=== PATIENT | male | born 1990 | race Caucasian/White ===

== ENCOUNTER 2024-08-31 00:22 | Emergency (ER) | payer OTHER, SELFPAY ==
--- OUTSIDE RECORDS SUMMARY | 2024-08-31 00:24 | XMS_ITS | Clinical Summary ---
Author Organization [employer] [facility] Address [place], [place] [address] Care Team Providers Care Driller'S Assistant Name Role Phone Pcp, No Primary Care Provider Unavailabl e Allergies No known active allergies Medications buprenorphine-n aloxone, 2 mg-0.5 mg, (SUBOXONE) sublingual tablet Place under the tongue every morning. 0 12/25/2018 Active dextroamphetami ne-amphetamine (ADDERALL XR) 20 mg Extended-Releas e capsule Take 1 Capsule by mouth once daily. Active dextroamphetami ne-amphetamine (ADDERALL) 10 mg tablet Take 10 mg by mouth once daily. 02/09/2024 Active Active Problems Problem Noted Date Diagnosed Date Controlled substance agreement broken 06/03/2019 Elevated BP without diagnosis of hypertension Resolved Problems Problem Noted Date Diagnosed Date Resolved Date ADD (attention deficit disorder) 05/07/2011 12/25/2018 Immunizations Name Administration Dates Next Due COVID-19 vaccine (Errol-J&J) MATTY CLARKE 1 COVID-19 vaccine (Gamma Medica-Bio NTech 30mcg/0.3mL) 12YO+ DELL-SUCROSE MATTY CLARKE 08/08/2021 Hepatitis B (Peds) 04/16/2003 Td (Age >=7 Years) 04/16/2003 Tdap 06/26/2018,04/16/2003 Social History Tobacco Use Types Packs/Day Years Used Date Smoking Tobacco: Every Day Cigarettes Smokeless Tobacco: Never Tobacco Cessation:Ready to Q uit: Not Asked; Counseling Given: Not Answered Alcohol Use Standard Drinks/Week Comments No 0 (1 standard drink = 0.6 oz pur e alcohol) [facility] Utilities Answer Date Recorded Do you have trouble paying f or utilities (for example, heat, electricity, water, phone)? Yes 02/11/2024 PHQ-2 Answer Date Recorded PHQ-2 Score 0 10/25/2018 Social Connections Answer Date Recorded Do you often feel lonely or isolated from those around you? 0 02/11/2024 Financial Resource Strain Answer Date R ecorded Difficulty of Paying Living Expenses 3 02/11/2024 Difficulty of Paying Living Expenses Not on file 02/11/2024 Food Insecurity Answer Date Recorded Do you worry your food will run out before you are able to buy more? 1 02/11/2024 Transportation Needs Answer Date Record ed Does lack of transportation keep you from medica l appointments? 1 02/11/2024 Does lack of transportation keep you from work, meetings or getting things that you need? 1 02/11/2024 Housing Stability Answer Date Recorded What is your housing situation today? 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 Gender Identity Not on file Sexual Orientation Not on file Obstetrics History Last Filed Vital Signs Vital Sign Reading Time Taken Comments Blood Pressure 123/75 02/11/2024 10:05 AM CDT Pulse 64 02/11/2024 10:05 AM CDT Temperature 36.6 C (97.9 F) 06/04/2020 10:31 AM CDT Respiratory Rate 18 06/04/2020 10:31 AM CDT Oxygen Saturation 99% 02/11/2024 10:05 AM CDT Inhaled Oxygen Concentration - - Weight 57.6 kg (127 lb) 06/04/2020 10:17 AM CDT Height 177.8 cm (5' 10) 06/04/2020 10:17 AM CDT Body Mass Index 18.22 06/04/2020 10:17 AM CDT Plan of Treatment Health Maintenance Due Date Last Done Comments Pneumococcal series for age 6-49 (1 of 2 - PCV) 1995 BMI (ht and wt on same day) for age 18+ 12/26/2019 12/25/2018, 09/28/2018, 06/26/2018, Additional history exists Depression screening for age 12+ 12/26/2019 12/25/2018, 12/22/2018, 01/05/2018, Additional history exists Lipids for age 35-44 01/25/2024 COVID-19 vaccine series (2023- season) 2024 08/08/2021, 08/08/2021, 11/29/2020 Influenza for age 9-49 04/25/2024 Tetanus booster 06/26/2028 06/26/2018, 03/26, 04/16/2003 Tdap Completed 06/26/2018, 04/16/2003 HIV for age 15-65 Completed 01/05/2020, 06/26/2018 Hepatitis C screening for ag e 18-79 Completed 01/05/2020 Procedures Procedure Name Priority Date/Time Associated Diagnosis Comments ANTI HIV 1/2 Routine 01/05/2020 2:49 PM CDT Opioid dependence, uncomplicated (HC) Other psychoactive substance dependence, uncomplicated (HC) ANTI HCV Routine 01/05/2020 2:49 PM CDT Opioid dependence, uncomplicated (HC) Other psychoactive substance dependence, uncomplicated (HC) from Last 3 Months or Most Recently Relevant to Health Maintenance Results * ANTI HCV (01/05/2020 2:49 PM CDT) Pathologist [facility] HEPATITIS C ANTIBODY Non-React maicol Non-React maicol 01/06/2020 3:21 PM CDT [facility] Comment:Antibodies to HCV no t detected; does not exclude the possibility of exposure to HCV. Blood BLOOD SPECIMEN / Unknown 01/05/2020 2:49 PM CDT 01/06/2020 9:35 AM CDT us Cassy Stewart RN, INTERNATIONAL SALES MANAGER SEND OUTS Final Result [facility] [address] [place] [address], * ANTI HIV 1/2 (01/05/2020 2:49 PM CDT) Pathologist [facility] HIV-1/HIV-2 ANTIBODY Non-Reacti ve Non-Reacti ve 01/06/2020 3:14 PM CDT [facility] Comment:HIV-1 p24 and HIV-1/ HIV-2 Ab not detected. Blood BLOOD SPECIMEN / Unknown 01/05/2020 2:49 PM CDT 01/06/2020 9:35 AM CDT us Cassy Stewart RN, INTERNATIONAL SALES MANAGER SEND OUTS Final Result [facility] [address] [place] [address], [place] from Last 3 Months or Most Recently Relevant to Health Maintenance Insurance BLUE CROSS OF NON-PA-ITS * Guarantor: INMATE,[facility] Account Type Relation to Patient Date of Phone Billing Address Inmate Billing [address] [place] [address] Care Teams Driller'S Assistant Relationship Specialty Start Date End Date Pcp, No . PCP - General 02/10/24
[2024-08-31 00:43] VITALS: BP 143/87; PULSE 75; RESP 16; TEMP 37.5; O2SAT 97; BMI 21.6
--- NOTE | 2024-08-31 01:09 | ED.GENADULT ---
HPI - General Adult General Chief complaint: Laceration/Wound Stated complaint: Sliced finger at work, bleeding Time Seen by Provider: 08/31/24 00:53 Source: patient Mode of arrival: ambulatory Limitations: no limitations History of Present Illness HPI narrative: 34-year-old male presents the emergency department very shortly after a laceration with a pocket knife at work. Patient was cutting some wrapped plastic and the knife slipped, cutting his left thumb just at the dorsal knuckle area. Reported lots of bleeding. Has a little bit of numbness at the finger tip but no difficulty moving the thumb. No prior history of surgery or major injury to the thumb. Has not taken any medication for pain, did try applying pressure but reports that this was unsuccessful. Past medical history notable for tobacco use. Prescriptions for Suboxone and Adderall noted. No allergies. ROS is notable for no other generalized, musculoskeletal or skin issues. Related Data Home Medications ?Medication ?Instructions ?Recorded ?Confirmed buprenorphine 8 mg-naloxone 2 mg 1 film buccal Q24H 02/14/24 08/31/24 sublingual film (Suboxone) buprenorphine HCl 8 mg sublingual 8 mg sublingual QDAY 02/14/24 08/31/24 tablet dextroamphetamine-amphetamine 10 1 tab PO DAILY 02/14/24 08/31/24 mg tablet dextroamphetamine-amphetamine ER 1 cap PO QAM 02/14/24 08/31/24 20 mg 24hr capsule,extend release Allergies Allergy/AdvReac Type Severity Reaction Status Date / Time No Known Drug Allergies Allergy Verified 08/31/24 00:48 PFSH [facility] Social History Smoking Status: Current every day smoker What tobacco products do you use: cigarettes Smoking packs per day: 0.5 Smoking cigarettes per day: 10.0 Do you use any of these nicotine containing products: None Second hand tobacco smoke exposure: No Non-prescribed substance use: denies use service: No Exam Const: Vital Signs, click to edit/add: Vital Signs - 24 hr 08/31/24 00:43 Temperature 99.5 F Pulse Rate [Pulse Oximeter] 75 Respiratory Rate 16 Blood Pressure [Ri ght Upper Arm] 143/87 H Pulse Oximetry 97 Oxygen Delivery Me thod Room Air Documenting provider has reviewed patient's vital signs: yes Common normals: no apparent distress General appearance: cooperative and comfortable Other: Friendly and cooperative. HENMT: Common normals: normocephalic Head and scalp: normocephalic Face and sinus: normal facial exam Other: Dental caries but otherwise normal appearing lips. Eye: Common normals: conjunctivae normal General eye: normal appearance of both eyes Conjunctiva: conjunctiva(e) normal Resp: Common normals: normal respiratory effort Effort & inspection: able to speak in complete sentences Extremity: Other: Right hand grossly normal. Left hand shows dressing over the thumb, removed. There is a 2-3 mm superficial laceration at the dorsal interphalangeal joint that bleeds slightly when flexed but does slow when the thumb is extended. Appears to be over a very superficial vein. No difficulty with opposition, flexion or extension of the thumb. Normal appearing male. No other signs of injury to the left hand or other fingers. Psych: Appearance: grossly normal Activity/motor behavior: appropriate eye contact Insight: insight good Judgement: judgment good Skin: Narrative: No other areas of injury besides left thumb. Course Course ED Course: 34-year-old male with small laceration to left thumb without signs of underlying significant vascular, neurological or tendon injury. Procedure: Dermabond laceration repair. Verbal consent obtained. Thumb is held in hyper extension and Dermabond is applied into separate coats, allowing to dry in between with good hemostasis. Well tolerated. Counseled on Tylenol and ibuprofen. Counseled on care. May return to work without restrictions. Alarm symptoms reviewed that would warrant ED presentation. Written instructions provided. Vital Signs Vital signs: Initial Vital Signs Temperature 99.5 F 08/31/24 00:43 Temperature Source Temporal Artery Scan 08/31/24 00:43 Pulse Rate 75 08/31/24 00:43 Respiratory Rate 16 08/31/24 00:43 Blood Pressure 143/87 H 08/31/24 00:43 Blood Pressure Mean 105 08/31/24 00:43 Blood Pressure Position Sitting 08/31/24 00:43 Pulse Oximetry 97 08/31/24 00:43 Oxygen Delivery Method Room Air 08/31/24 00:43 Vital Signs Temperature 99.5 F 08/31/24 00:43 Pulse Rate 75 08/31/24 00:43 Respiratory Rate 16 08/31/24 00:43 Blood Pressure 143/87 H 08/31/24 00:43 Pulse Oximetry 97 08/31/24 00:43 Oxygen Delivery Method Room Air 08/31/24 00:43 Temperature 99.5 F 08/31/24 00:43 Pulse Rate 75 08/31/24 00:43 Respiratory Rate 16 08/31/24 00:43 Blood Pressure 143/87 H 08/31/24 00:43 Pulse Oximetry 97 08/31/24 00:43 Oxygen Delivery Method Room Air 08/31/24 00:43 Discharge Plan Discharge Clinical Impression: Laceration of thumb Patient Disposition: Home, Self-Care Condition: Improved Instructions: Finger Laceration (ED) Additional Instructions: As we discussed, the cut was over a superficial vein, hence the heavy bleeding but thankfully it is a very small cut. This will heal within a couple of days. The glue that was applied over the top of the skin will help prevent further bleeding. Because of swelling, it can be common to have a little bit of numbness in the tip of the thumb but created it may be difficult to fully bend the thumb because of the glue but as this gradually wears off over the next few days, this will become increasingly easier. Do not apply any Vaseline or ointments over the glue as this would loosen it prematurely. It is okay for the hand to get wet. Adequately like with washing her hands or such but try to avoid soaking the hand in water. You may wash but do not aggressively scrubbed or apply any heavy solvents. Try to wear gloves when working to avoid abrasions to the glue. Infection is incredibly rare but should there be significant swelling, drainage or other signs of complication, please follow-up in urgent care. You may return to work without restrictions. Activity Level: No Restrictions Discharge Diet: Regular Prescriptions: No Action dextroamphetamine-amphetamine 20 mg capsule,extended release 24hr 1 cap PO QAM dextroamphetamine-amphetamine 10 mg tablet 1 tab PO DAILY buprenorphine-naloxone [Suboxone] 8-2 mg film 1 film buccal Q24H buprenorphine HCl 8 mg tablet, sublingual 8 mg sublingual QDAY Follow Up/Referrals: Dillon Sheppard MD [Primary Care Provider] - Stand Alone [facility] Info Instructions
--- OUTSIDE RECORDS SUMMARY | 2024-08-31 01:20 | XMS_ITS | Clinical Summary ---
Author Organization [employer] Address [place], [place] [address] Care Team Providers Care Security Operations Center Analyst Name Role Phone Pcp, No Primary Care [...] vaccine (Errol-J&J) MATTY CLARKE 1 COVID-19 vaccine (TxtFeedback-Bio NTech 30mcg/0.3mL) 12YO+ DELL-SUCROSE MATTY CLARKE 08/08/2021 Hepatitis B (Peds) 04/16/2003 Td (Age >=7 Years) 04/16/2003 Tdap 06/26/2018,04/16/2003 Social History Tobacco Use Types Packs/Day Years Used Date Smoking Tobacco: Every Day Cigarettes Smokeless Tobacco: Never Tobacco Cessation:Ready to Q uit: Not Asked; Counseling Given: Not Answered Alcohol Use Standard Drinks/Week Comments No 0 (1 standard drink = 0.6 oz pur e alcohol) [facility] Utilities Answer Date Recorded Do [...] on file 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 Comment:Antibodies to HCV no t detected; does not exclude the possibility of exposure to HCV. Blood BLOOD SPECIMEN / Unknown 01/05/2020 2:49 PM CDT 01/06/2020 9:35 AM CDT us Cassy Stewart RN, SOUND RANGING CREWMEMBER SEND OUTS Final Result [facility] [address] [place] [address], * ANTI HIV 1/2 (01/05/2020 2:49 PM CDT) Pathologist [facility] HIV-1/HIV-2 ANTIBODY Non-Reacti ve Non-Reacti ve 01/06/2020 3:14 PM CDT [facility] Comment:HIV-1 p24 and HIV-1/ HIV-2 Ab not detected. Blood BLOOD SPECIMEN / Unknown 01/05/2020 2:49 PM CDT 01/06/2020 9:35 AM CDT us Cassy Stewart RN, SOUND RANGING CREWMEMBER SEND OUTS Final Result [facility] [address] [place] [address], [place] from Last 3 Months or Most Recently Relevant to Health Maintenance Insurance BLUE CROSS OF NON-FL-ITS * Guarantor: INMATE,[facility] Account Type Relation to Patient Date of Phone Billing Address Inmate Billing [address] [place] [address] Care Teams Security Operations Center Analyst Relationship Specialty Start Date End Date Pcp, No . PCP - General 02/10/24
== END 2024-08-31 01:24 | disposition home or self-care (01) ==
LOC: ED 01:19
PROVIDERS: Emergency Provider Family Medicine; PCP Family Medicine
DX: S61.012A Laceration without foreign body of left thumb without damage to nail, initial encounter (principal); W26.0XXA Contact with knife, initial encounter
CPT/HCPCS: 12001; 99282; 99283